=== PATIENT | male | born 1970 ===

== ENCOUNTER 2018-02-02 19:58 | Inpatient (IN) ==
[2018-02-02] MEDS ORDERED: MORPHINE 2 MG/1 ML SYRINGE IV STA (21:26)
[2018-02-02] MEDS ORDERED: ONDANSETRON 4 MG/2 ML VIAL IV STA (21:26)
[2018-02-02] MEDS ORDERED: MORPHINE 2 MG/1 ML SYRINGE ONE (21:28)
[2018-02-02] MEDS ORDERED: ONDANSETRON 4 MG/2 ML VIAL ONE ×2 (21:28→23:23)
[2018-02-02] MEDS ORDERED: GENTAMICIN 80 MG/2 ML VIAL ONE (21:51)
[2018-02-02] MEDS ORDERED: DEXTROSE 50% 25 GM/50 ML VIAL IV PRN (21:58)
[2018-02-02] MEDS ORDERED: GLUCAGON 1 MG VIAL IM PRN (21:58)
[2018-02-02] MEDS ORDERED: ALBUTEROL 2.5 MG/3 ML NEB RESP TX PRN (21:58)
[2018-02-02] MEDS ORDERED: ceFAZolin 1,000 MG VIAL ONE (22:26)
[2018-02-02] MEDS ORDERED: SUCCINYLCHOLINE 200 MG/10 ML VIAL ONE (23:23)
[2018-02-02] MEDS ORDERED: ROCURONIUM 100 MG/10 ML VIAL IV ONE (23:23)
[2018-02-02] MEDS ORDERED: SODIUM CHLORIDE 0.9% 250 ML IV ONE (23:23)
[2018-02-02] MEDS ORDERED: DESFLURANE 1 UNIT/15 MINUTE INH ONE (23:23)
[2018-02-02] MEDS ORDERED: PROPOFOL 200 MG/20 ML VIAL IV ONE (23:23)
[2018-02-02] MEDS ORDERED: PHENYLEPHRINE 1 MG/10 ML SYRINGE IV ONE (23:23)
[2018-02-02] MEDS ORDERED: MIDAZOLAM 2 MG/2 ML VIAL ONE (23:23)
[2018-02-02] MEDS ORDERED: fentaNYL 100 MCG/2 ML VIAL ONE (23:23)
[2018-02-02] MEDS: CLINDAMYCIN INJ 900 MG in PREMIX 1 EACH IV SCH (23:26)
[2018-02-02] MEDS: MEROPENEM 500 MG in SYRINGE 1 EACH IV SCH (23:28)
[2018-02-02] MEDS ORDERED: PROPOFOL 1,000 MG/100 ML BOTTLE IV SCH (23:30)
[2018-02-02] MEDS: INSULIN REGULAR 100 UNIT/ML SUBCUT SCH (23:30)
[2018-02-02] MEDS: SODIUM CHLORIDE 0.9% 1,000 ML IV SCH (23:31)
[2018-02-02] MEDS: MORPHINE 2 MG/1 ML SYRINGE IV PRN (23:51)
[2018-02-03] MEDS: VANCOMYCIN INJ 2,000 MG in SODIUM CHLORIDE 0.9% 500 ML IV SCH (01:50)
[2018-02-03] MEDS: MORPHINE 2 MG/1 ML SYRINGE IV PRN ×6 (03:46→22:35)
[2018-02-03] MEDS: INSULIN REGULAR 100 UNIT/ML SUBCUT SCH ×5 (03:47→20:05)
[2018-02-03] MEDS: PHENYLEPHRINE DRIP 40 MG/250 ML PREMIX IV SCH ×2 (05:08→23:41)
[2018-02-03 05:20] LABS: ABG Base Excess -0.7 MMOL/L (-2.5-2.5); ABG HCO3 23.9 MMOL/L (20-26); ABG Oxygen Saturation 99.2 % (95-100); ABG PCO2 33.6 MM HG (35-48); ABG PH 7.441 (7.35-7.45); ABG TCO2 20.4 MMOL/L (23-27)
[2018-02-03 05:54] LABS: Basophils % 0.1 % (0.0-0.8); Eosinophils % 0.1 % (0.00-10.9); Hematocrit 33.1 VOL% (42.0-52.0); Hemoglobin 10.8 GM/DL (14.0-18.0); Immature Granulocytes % 1.2 %; Immature Granulocytes Absolute 0.16 #; Lymphocytes # 0.9 10*3/uL (1.4-4.0); Lymphocytes % 6.7 % (21.2-54.2); Mean Corpuscular HGB Conc 32.6 GM/DL (32-36); Mean Corpuscular Hemoglobin 28 PG (27-34); Mean Corpuscular Volume 85.3 FL (87-102); Mean Platelet Volume 10.7 FL (9.6-12.0); Monocytes # 1.1 10*3/uL (0.11-0.8); Neutrophils # 11.5 10*3/uL (1.4-7.4); Neutrophils % 83.9 % (38.7-73.9); Platelet Count 161 T/CUMM (130-400); Red Blood Count 3.88 MC/CUMM (3.8-5.5); Red Cell Distribution Width 13.1 % (9.3-17.3); White Blood Count 13.7 T/CUMM (4-12)
[2018-02-03] MEDS: CLINDAMYCIN INJ 900 MG in PREMIX 1 EACH IV SCH ×4 (06:12→22:33)
[2018-02-03] MEDS: MEROPENEM 500 MG in SYRINGE 1 EACH IV SCH (06:12)
[2018-02-03 06:17] LABS: Hypochromasia 1+; Lymphocytes 6 % (20-55); Ovalocytes Slight; Platelet Estimate Normal; Segmented Neutrophils 91 % (50-85); Total Cells Counted 100
[2018-02-03 06:18] LABS: Giant Platelets Few
[2018-02-03 06:30] LABS: Albumin 2.1 G/DL (3.4-5.0); Calcium 7.5 MG/DL (8.5-10.1); Osmolality,Calculated 286.8 MOS/KG (273-304); Potassium 3.9 MMOL/L (3.5-5.1); Total Protein 5.4 G/DL (6.4-8.3)
[2018-02-03] MEDS ORDERED: SODIUM HYPOCHLORITE 0.25% IRRIG 473 ML BOTTLE ONE (07:08)
[2018-02-03 08:42] LABS: ABG Base Excess 0.7 MMOL/L (-2.5-2.5); ABG HCO3 25.1 MMOL/L (20-26); ABG PCO2 25.6 MM HG (35-48); ABG PH 7.545 (7.35-7.45); ABG TCO2 19.9 MMOL/L (23-27); Pt O2 Delivery Device Ventilator
[2018-02-03 10:02] LABS: ABG Base Excess -0.7 MMOL/L (-2.5-2.5); ABG HCO3 23.7 MMOL/L (20-26); ABG Oxygen Saturation 97.1 % (95-100); ABG PCO2 38.5 MM HG (35-48); ABG PH 7.408 (7.35-7.45); ABG PO2 97.1 MM HG (80-95); ABG TCO2 24.9 MMOL/L (23-27)
[2018-02-03] MEDS: SODIUM CHLORIDE 0.9% 1,000 ML IV SCH ×2 (11:32→21:36)
[2018-02-03] MEDS: MEROPENEM 1,000 MG in SYRINGE 1 EACH IV SCH ×2 (14:01→22:26)
[2018-02-04] MEDS: INSULIN REGULAR 100 UNIT/ML SUBCUT SCH ×6 (00:12→20:34)
[2018-02-04] MEDS: VANCOMYCIN INJ 2,000 MG in SODIUM CHLORIDE 0.9% 500 ML IV SCH (00:16)
[2018-02-04] MEDS: MORPHINE 2 MG/1 ML SYRINGE IV PRN ×5 (02:48→17:48)
[2018-02-04 04:59] LABS: Basophils % 0.3 % (0.0-0.8); Eosinophils # 0.1 10*3/uL (0.0-0.87); Eosinophils % 1.3 % (0.00-10.9); Hemoglobin 11.2 GM/DL (14.0-18.0); Immature Granulocytes % 0.6 %; Immature Granulocytes Absolute 0.06 #; Lymphocytes # 1.4 10*3/uL (1.4-4.0); Lymphocytes % 14.2 % (21.2-54.2); Mean Corpuscular HGB Conc 33.9 GM/DL (32-36); Mean Corpuscular Hemoglobin 28 PG (27-34); Mean Corpuscular Volume 83.5 FL (87-102); Mean Platelet Volume 10.3 FL (9.6-12.0); Monocytes # 0.8 10*3/uL (0.11-0.8); Monocytes % 8.4 % (1.7-12.7); Neutrophils # 7.4 10*3/uL (1.4-7.4); Neutrophils % 75.2 % (38.7-73.9); Platelet Count 181 T/CUMM (130-400); Red Blood Count 3.95 MC/CUMM (3.8-5.5); Red Cell Distribution Width 13.2 % (9.3-17.3); White Blood Count 9.9 T/CUMM (4-12)
[2018-02-04 05:28] LABS: Calcium 7.3 MG/DL (8.5-10.1); Potassium 3.9 MMOL/L (3.5-5.1)
[2018-02-04] MEDS: MEROPENEM 1,000 MG in SYRINGE 1 EACH IV SCH ×3 (05:44→21:51)
[2018-02-04] MEDS: CLINDAMYCIN INJ 900 MG in PREMIX 1 EACH IV SCH ×3 (05:44→21:44)
[2018-02-04] MEDS: SODIUM CHLORIDE 0.9% 1,000 ML IV SCH ×2 (10:29→20:35)
[2018-02-04] MEDS: FAMOTIDINE 20 MG/2 ML VIAL IV SCH (17:48)
[2018-02-04] MEDS: MORPHINE 4 MG/1 ML VIAL IV PRN (22:00)
[2018-02-05] MEDS: INSULIN REGULAR 100 UNIT/ML SUBCUT SCH ×6 (00:50→21:04)
[2018-02-05] MEDS: VANCOMYCIN INJ 2,000 MG in SODIUM CHLORIDE 0.9% 500 ML IV SCH (00:51)
[2018-02-05] MEDS: MORPHINE 4 MG/1 ML VIAL IV PRN ×5 (01:02→21:08)
[2018-02-05 05:05] LABS: Basophils % 0.1 % (0.0-0.8); Eosinophils # 0.2 10*3/uL (0.0-0.87); Eosinophils % 2.6 % (0.00-10.9); Hematocrit 31.4 VOL% (42.0-52.0); Hemoglobin 10.7 GM/DL (14.0-18.0); Immature Granulocytes % 0.4 %; Immature Granulocytes Absolute 0.03 #; Lymphocytes # 1.3 10*3/uL (1.4-4.0); Lymphocytes % 18.1 % (21.2-54.2); Mean Corpuscular HGB Conc 34.1 GM/DL (32-36); Mean Corpuscular Hemoglobin 28 PG (27-34); Mean Corpuscular Volume 83.1 FL (87-102); Mean Platelet Volume 10.4 FL (9.6-12.0); Monocytes # 0.8 10*3/uL (0.11-0.8); Monocytes % 10.7 % (1.7-12.7); Neutrophils % 68.1 % (38.7-73.9); Platelet Count 207 T/CUMM (130-400); Red Blood Count 3.78 MC/CUMM (3.8-5.5); Red Cell Distribution Width 13.1 % (9.3-17.3); White Blood Count 7.4 T/CUMM (4-12)
[2018-02-05] MEDS: FAMOTIDINE 20 MG/2 ML VIAL IV SCH ×2 (05:25→17:15)
[2018-02-05] MEDS: MEROPENEM 1,000 MG in SYRINGE 1 EACH IV SCH ×3 (05:26→21:04)
[2018-02-05] MEDS: CLINDAMYCIN INJ 900 MG in PREMIX 1 EACH IV SCH ×3 (05:40→22:57)
[2018-02-05] MEDS: SODIUM CHLORIDE 0.9% 1,000 ML IV SCH ×2 (05:41→15:50)
[2018-02-05 05:45] LABS: Calcium 7.3 MG/DL (8.5-10.1); Osmolality,Calculated 286.7 MOS/KG (273-304); Potassium 4.2 MMOL/L (3.5-5.1)
[2018-02-05] MEDS ORDERED: SEVOFLURANE 1 UNIT/15 MINUTE INH ONE (11:23)
[2018-02-05] MEDS ORDERED: PROPOFOL 200 MG/20 ML VIAL IV ONE (11:23)
[2018-02-05] MEDS ORDERED: ONDANSETRON 4 MG/2 ML VIAL ONE (11:24)
[2018-02-05] MEDS ORDERED: ACETAMINOPHEN 1,000 MG/100 ML VIAL IV ONE (11:24)
[2018-02-05] MEDS ORDERED: MIDAZOLAM 2 MG/2 ML VIAL ONE (11:24)
[2018-02-05] MEDS ORDERED: fentaNYL 100 MCG/2 ML VIAL ONE (11:24)
[2018-02-05] MEDS ORDERED: KETOROLAC 30 MG/1 ML VIAL ONE (11:24)
[2018-02-05] MEDS ORDERED: INSULIN DETEMIR 100 UNIT/ML SUBCUT SCH (21:00)
[2018-02-05] MEDS: MAGNESIUM CHLORIDE 64 MG TABLET PO SCH (21:04)
[2018-02-05] MEDS: INSULIN GLARGINE 100 UNIT/ML SUBCUT SCH (21:04)
[2018-02-06] MEDS: VANCOMYCIN INJ 2,000 MG in SODIUM CHLORIDE 0.9% 500 ML IV SCH (00:37)
[2018-02-06] MEDS: INSULIN REGULAR 100 UNIT/ML SUBCUT SCH ×6 (00:37→20:35)
[2018-02-06] MEDS: MORPHINE 4 MG/1 ML VIAL IV PRN ×7 (02:47→23:12)
[2018-02-06] MEDS: MEROPENEM 1,000 MG in SYRINGE 1 EACH IV SCH ×3 (06:23→22:53)
[2018-02-06] MEDS: FAMOTIDINE 20 MG/2 ML VIAL IV SCH (06:23)
[2018-02-06] MEDS: CLINDAMYCIN INJ 900 MG in PREMIX 1 EACH IV SCH ×3 (06:24→22:53)
[2018-02-06] MEDS: LISINOPRIL 20 MG TABLET PO SCH ×2 (09:43→20:34)
[2018-02-06] MEDS: MAGNESIUM CHLORIDE 64 MG TABLET PO SCH ×2 (09:43→20:34)
[2018-02-06] MEDS: ASPIRIN EC 81 MG TABLET PO SCH (09:43)
[2018-02-06] MEDS: hydroCHLOROthiazide 25 MG TABLET PO SCH (09:43)
[2018-02-06] MEDS: PANTOPRAZOLE 40 MG TABLET PO SCH (09:44)
[2018-02-06] MEDS: CARVEDILOL 12.5 MG TABLET PO SCH ×2 (09:44→20:34)
[2018-02-06] MEDS: SODIUM CHLORIDE 0.9% 1,000 ML IV SCH (09:45)
[2018-02-06] MEDS: SODIUM HYPOCHLORITE 0.25% IRRIG 473 ML BOTTLE TOP SCH ×2 (13:04→20:35)
[2018-02-06] MEDS: glipiZIDE 5 MG TABLET PO SCH (17:00)
[2018-02-06] MEDS: INSULIN GLARGINE 100 UNIT/ML SUBCUT SCH (20:34)
[2018-02-06] MEDS: SIMVASTATIN 20 MG TABLET PO SCH (20:34)
[2018-02-07] MEDS: INSULIN REGULAR 100 UNIT/ML SUBCUT SCH ×6 (00:34→20:14)
[2018-02-07] MEDS: VANCOMYCIN INJ 2,000 MG in SODIUM CHLORIDE 0.9% 500 ML IV SCH (00:35)
[2018-02-07] MEDS: MORPHINE 4 MG/1 ML VIAL IV PRN ×5 (04:42→21:03)
[2018-02-07] MEDS: NIFEdipine 10 MG CAPSULE PO PRN ×2 (04:42→20:14)
[2018-02-07] MEDS: SODIUM CHLORIDE 0.9% 1,000 ML IV SCH ×2 (04:43→12:46)
[2018-02-07 05:27] LABS: Basophils % 0.3 % (0.0-0.8); Eosinophils # 0.2 10*3/uL (0.0-0.87); Eosinophils % 3.4 % (0.00-10.9); Hemoglobin 11.6 GM/DL (14.0-18.0); Immature Granulocytes % 0.6 %; Immature Granulocytes Absolute 0.04 #; Lymphocytes # 1.2 10*3/uL (1.4-4.0); Lymphocytes % 19.6 % (21.2-54.2); Mean Corpuscular HGB Conc 33.1 GM/DL (32-36); Mean Corpuscular Hemoglobin 28 PG (27-34); Mean Corpuscular Volume 83.3 FL (87-102); Mean Platelet Volume 10.8 FL (9.6-12.0); Monocytes # 0.6 10*3/uL (0.11-0.8); Neutrophils # 4.1 10*3/uL (1.4-7.4); Neutrophils % 66.1 % (38.7-73.9); Platelet Count 187 T/CUMM (130-400); Red Cell Distribution Width 13.1 % (9.3-17.3); White Blood Count 6.2 T/CUMM (4-12)
[2018-02-07 05:59] LABS: Calcium 8.2 MG/DL (8.5-10.1); Osmolality,Calculated 277.4 MOS/KG (273-304); Potassium 4.5 MMOL/L (3.5-5.1)
[2018-02-07] MEDS: MEROPENEM 1,000 MG in SYRINGE 1 EACH IV SCH (06:20)
[2018-02-07] MEDS: CLINDAMYCIN INJ 900 MG in PREMIX 1 EACH IV SCH (06:31)
[2018-02-07] MEDS: CLOPIDOGREL 75 MG TABLET PO SCH (08:10)
[2018-02-07] MEDS: MAGNESIUM CHLORIDE 64 MG TABLET PO SCH ×2 (08:10→20:14)
[2018-02-07] MEDS: glipiZIDE 5 MG TABLET PO SCH ×2 (08:10→17:26)
[2018-02-07] MEDS: hydroCHLOROthiazide 25 MG TABLET PO SCH (08:10)
[2018-02-07] MEDS: CARVEDILOL 12.5 MG TABLET PO SCH ×2 (08:10→20:14)
[2018-02-07] MEDS: PANTOPRAZOLE 40 MG TABLET PO SCH (08:10)
[2018-02-07] MEDS: LISINOPRIL 20 MG TABLET PO SCH ×2 (08:10→20:14)
[2018-02-07] MEDS: ASPIRIN EC 81 MG TABLET PO SCH (08:10)
[2018-02-07] MEDS: SODIUM HYPOCHLORITE 0.25% IRRIG 473 ML BOTTLE TOP SCH ×2 (08:11→20:15)
[2018-02-07] MEDS: AMPICILLIN/SULBACTAM 3,000 MG in SODIUM CHLORIDE 0.9% 100 ML IV SCH ×2 (10:52→17:26)
[2018-02-07] MEDS: CLINDAMYCIN 150 MG CAPSULE PO SCH ×2 (14:53→21:02)
[2018-02-07] MEDS: GABAPENTIN 300 MG CAPSULE PO PRN (20:14)
[2018-02-07] MEDS: SIMVASTATIN 20 MG TABLET PO SCH (20:14)
[2018-02-07] MEDS: INSULIN GLARGINE 100 UNIT/ML SUBCUT SCH (20:15)
[2018-02-08] MEDS: INSULIN REGULAR 100 UNIT/ML SUBCUT SCH ×4 (00:43→11:25)
[2018-02-08] MEDS: AMPICILLIN/SULBACTAM 3,000 MG in SODIUM CHLORIDE 0.9% 100 ML IV SCH ×2 (01:03→09:41)
[2018-02-08] MEDS: CLINDAMYCIN 150 MG CAPSULE PO SCH ×2 (05:15→14:18)
[2018-02-08] MEDS: MORPHINE 4 MG/1 ML VIAL IV PRN ×2 (05:17→08:40)
[2018-02-08] MEDS: glipiZIDE 5 MG TABLET PO SCH (08:37)
[2018-02-08] MEDS: ASPIRIN EC 81 MG TABLET PO SCH (08:37)
[2018-02-08] MEDS: hydroCHLOROthiazide 25 MG TABLET PO SCH (08:38)
[2018-02-08] MEDS: CARVEDILOL 12.5 MG TABLET PO SCH (08:38)
[2018-02-08] MEDS: MAGNESIUM CHLORIDE 64 MG TABLET PO SCH (08:39)
[2018-02-08] MEDS: PANTOPRAZOLE 40 MG TABLET PO SCH (08:39)
[2018-02-08] MEDS: CLOPIDOGREL 75 MG TABLET PO SCH (08:39)
[2018-02-08] MEDS: LISINOPRIL 20 MG TABLET PO SCH (08:39)
[2018-02-08 11:08] VITALS: BP 153/77
[2018-02-08] MEDS: SODIUM HYPOCHLORITE 0.25% IRRIG 473 ML BOTTLE TOP SCH (11:55)
[2018-02-08] MEDS: GABAPENTIN 300 MG CAPSULE PO PRN (14:18)
== END 2018-02-08 15:25 | DRG 264 ==
LOC: EDBD → EDUNIT# → N.ED 19:58 → SUATTDRO 21:58 → N.ICU 21:58 → N.3E 02-04 15:34
PROVIDERS: ADMIT Internal Medicine; ATTEND Family Medicine